=== PATIENT | female | born 1950 | race African-American/Black ===

== ENCOUNTER 2019-04-03 10:29 | Emergency (ER) | payer MEDICARE, OTHER ==
[~2019-04-03] VITALS: Ht 162.6 cm; Wt 81.6 kg
[~2019-04-03 10:29] MED LIST: AMLO5TAB10 PO; CALCIUM; LISI-338 PO; MULT1TAB52 PO
[2019-04-03 11:12] VITALS: BP 118/66
[2019-04-03] MEDS ORDERED: CYCLOBENZAPRINE 10 MG TABLET. PO ONE (11:30)
--- NOTE | 2019-04-03 11:44 | PHYS DOC ---
Past Medical History Past Medical History: Cancer, Hypertension Additional Past Medical Histor: LUNG CA Past Surgical History: Cancer Surgery, Tubal ligation Alcohol Use: None Drug Use: None Adult General Chief Complaint Chief Complaint: BACK PAIN OR INJURY [facility] HPI Patient is a 68 year old female who presents with complaining of low back pain. Patient complains of intermittent episodes of low back pain as a throbbing pain for the last 1 week that happened only with activity and movement as a moderate pain. Patient states the pain does not radiate and denies focal neuro deficit, nausea, and bowel incontinence. Patient states she fell asleep on a recliner last night and since then her pain getting force and rated her pain 8/10 with activity. She denies history of back pain and injury. Patient states she took a muscle relaxer last night without change of her pain. Review of Systems Review of Systems Constitutional: Denies fever or chills [] Eyes: Denies change in visual acuity, redness, or eye pain [] HENT: Denies nasal congestion or sore throat [] Respiratory: Denies cough or shortness of breath [] Cardiovascular: No additional information not addressed in HPI [] GI: Denies abdominal pain, nausea, vomiting, bloody stools or diarrhea [] : Denies dysuria or hematuria [] Musculoskeletal: Reports back pain Integument: Denies rash or skin lesions [] Neurologic: Denies headache, focal weakness or sensory changes [] Endocrine: Denies polyuria or polydipsia [] All other systems were reviewed and found to be within normal limits, except as documented in this note. Current Medications Current Medications Current Medications Medications (Trade) Dose Ordered Sig/Gustavo Start Time Stop Time Status Last Admin Dose Admin Acetaminophen/ Hydrocodone Bitart (Lortab 5/325) 1 tab 1X ONCE 04/03/19 11:45 04/03/19 11:36 DC Cyclobenzaprine HCl (Flexeril) 10 mg 1X ONCE 04/03/19 11:30 04/03/19 11:31 DC 04/03/19 12:01 10 MG Tramadol HCl (Ultram) 50 mg 1X ONCE 04/03/19 11:45 04/03/19 11:46 DC 04/03/19 12:01 50 MG Allergies Allergies Allergies Coded Allergies Type Severity Reaction Last Updated Verified codeine Allergy Intermediate 04/14/14 Yes latex Allergy Intermediate 04/14/14 Yes Physical Exam Physical Exam Constitutional: Well developed, well nourished, mild distress, non-toxic appearance. [] HENT: Normocephalic, atraumatic. Eyes: PERRLA, EOMI, conjunctiva normal, no discharge. [] Neck: Normal range of motion, no tenderness, supple, no stridor. [] Cardiovascular:Heart rate regular rhythm, no murmur [] Lungs & Thorax: Bilateral breath sounds clear to auscultation [] Abdomen: Bowel sounds normal, soft, no tenderness, no masses, no pulsatile masses. [] Skin: Warm, dry, no erythema, no rash. [] Back: No midline tenderness, painful range of motion , no CVA tenderness. [] Extremities: No tenderness, no cyanosis, no clubbing, ROM intact, no edema. [] Neurologic: Alert and oriented X 3, no focal deficits noted. [] Psychologic: Affect normal, judgement normal, mood normal. [] Current Patient Data Vital Signs Vital Signs Date Time Temp Pulse Resp B/P (MAP) Pulse Ox O2 Delivery O2 Flow Rate FiO2 04/03/19 11:12 98.6 76 20 118/66 (83) 99 Room Air 98.6 EKG EKG [] Radiology/Procedures Radiology/Procedures [][facility] [address] [place] [address] IMAGING REPORT Signed PATIENT: MAXIMINO DIANE ACCOUNT: [id number] : 1950 LOCATION: ER AGE: 68 SEX: F EXAM STATUS: REG ER ORD. PHYSICIAN: DECLAN DIA MD REASON: low back pain PROCEDURE: CT LUMBAR SPINE WO CONTRAST EXAM: Lumbar spine CT without contrast. HISTORY: Pain. TECHNIQUE: Computed tomographic images of the lumbar spine were obtained without contrast. Multiplanar reformatting was performed. *One or more of the following individualized dose reduction techniques were utilized for this examination: 1. Automated exposure control. 2. Adjustment of the mA and/or kV according to patient size. 3. Use of iterative reconstruction technique. COMPARISON: None. FINDINGS: There is mild lumbar scoliosis. There is grade 1 anterolisthesis of L4 and L5, measuring 4 mm. There is degenerative endplate remodeling predominantly at L5-S1. There are few tiny endplate Schmorl's nodes at this level. There is no fracture or suspicious osseous lesion. There is multilevel facet arthropathy. There is a 3.6 cm simple appearing cyst within the posterior upper mid zone of the left kidney. There is a heterogeneous solid-appearing mass within the lower pole the right kidney measuring 3.3 cm. At L1-L2, there is a disc bulge. There is no stenosis. At L2-L3, there is a disc bulge. There is minimal left facet arthropathy. There is no stenosis. At L3-L4, there is a disc bulge and endplate remodeling. There is minimal bilateral facet arthropathy. There is no stenosis. At L4-L5, there is a disc bulge and endplate osteophytosis. There is moderate bilateral facet arthropathy. There is grade 1 anterolisthesis. There is mild bilateral foraminal stenosis with abutment the exiting right L4 nerve root. At L5-S1, there is a disc bulge and endplate osteophytosis. There is mild right facet arthropathy. There is mild bilateral foraminal stenosis with abutment of the exiting right greater than left L5 nerve roots. IMPRESSION: 1. Multilevel degenerative change involving the lumbar spine, described in detail above. This is associated with mild bilateral foraminal stenosis and abutment the exiting right L4 nerve root at L4-5 and mild bilateral foraminal stenosis with abutment of the exiting right greater than left L5 nerve root at L5-S1. 2. Mild scoliosis and minimal grade 1 anterolisthesis of L4 on L5. 3. No acute finding. 4. 3.3 cm suspected mass along the lower pole of the right kidney. This is concerning for renal cell carcinoma. Correlate with a dedicated renal protocol CT or MRI, if not previously performed at an outside facility. There is also a simple appearing cyst within the left kidney measuring 3.6 cm. Electronically signed by: Raine Martines MD (04/03/2019 12:07 PM) [place] [id number] DICTATED and SIGNED BY: RAINE MARTINES MD DATE: 04/03/19 7395 Course & Med Decision Making Course & Med Decision Making Pertinent Imaging studies reviewed. (See chart for details) Evaluation of patient in ER showed 68-year-old female patient with lumbar pain that getting worse with movement. Patient did not have neurovascular deficit. CT of lumbar spine showed accidental left renal mass and patient was at was to follow-up with her primary care physician for evaluation of renal mass. discharge: I've spoken with the patient and/or caregivers. I've explained the patient's condition, diagnosis and treatment plan based on information available to me at this time. I've answered the patient's and/or caregivers questions and addressed any concerns. The patient and/or caregivers have a good understanding the patient's diagnosis, condition and treatment plan as can be expected at this point. Vital signs have been stabilized. The patient's condition is stable for discharge from the emergency department. The patient will pursue further outpatient evaluation with her primary care provider or other designated consulting physician as outlined in the discharge instructions. Patient and/or caregivers are agreeable to this plan of care and follow-up instructions have been explained in detail. The patient and/or caregivers have received these instructions in written format and expressed understanding of these discharge instructions. The patient and her caregivers are aware that if any significant change in condition or worsening of symptoms should prompt him to immediately return to this of the closest emergency depar tment. If an emergent department is not readily available I would encourage him to call 911. Dragon Disclaimer Dragon Disclaimer This electronic medical record was generated, in whole or in part, using a voice recognition dictation system. Departure Departure Impression: Primary Impression: Acute lumbosacral myofascial strain Additional Impressions: Renal mass, left Degenerative joint disease Disposition: HOME, SELF-CARE (at 1247) Condition: IMPROVED Referrals: JOHANNY JERNIGAN MD (PCP) Patient Instructions: Lumbosacral Strain Additional Instructions: Apply ice on your back Follow-up with your primary care physician in 3-5 days for evaluation of kidney mass Return to ER if not getting better Scripts Tramadol Hcl (ULTRAM) 50 Mg Tablet 50 MG PO Q6HRS PRN for PAIN, #14 TAB 0 Refills Prov: DECLAN DIA MD 04/03/19 Cyclobenzaprine Hcl (CYCLOBENZAPRINE HCL) 10 Mg Tablet 1 TAB PO TID, #21 TAB Prov: DECLAN DIA MD 04/03/19 Problem Qualifiers Primary Impression: Acute lumbosacral myofascial strain Encounter type: initial encounter Qualified Codes: S39.012A - Strain of muscle, fascia and tendon of lower back, initial encounter Additional Impressions: Degenerative joint disease Osteoarthritis location: spine Spinal region: unspecified Spinal osteoarthritis complication: unspecified spinal osteoarthritis Qualified Codes: M47.9 - Spondylosis, unspecified DECLAN DIA MD Apr 03, 2019 11:44
[2019-04-03] MEDS ORDERED: HYDROcodone/APAP 5/325MG 1 TAB TABLET PO ONE (11:45)
[2019-04-03] MEDS ORDERED: traMADol 50 MG TABLET PO ONE (11:45)
--- NOTE | 2019-04-03 12:10 | RAD ---
EXAM: Lumbar spine CT without contrast. HISTORY: Pain. TECHNIQUE: Computed tomographic images of the lumbar spine were obtained without contrast. Multiplanar reformatting was performed. *One or more of the following individualized dose reduction techniques were utilized for this examination: 1. Automated exposure control. 2. Adjustment of the mA and/or kV according to patient size. 3. Use of iterative reconstruction technique. COMPARISON: None. FINDINGS: There is mild lumbar scoliosis. There is grade 1 anterolisthesis of L4 and L5, measuring 4 mm. There is degenerative endplate remodeling predominantly at L5-S1. There are few tiny endplate Schmorl's nodes at this level. There is no fracture or suspicious osseous lesion. There is multilevel facet arthropathy. There is a 3.6 cm simple appearing cyst within the posterior upper mid zone of the left kidney. There is a heterogeneous solid-appearing mass within the lower pole the right kidney measuring 3.3 cm. At L1-L2, there is a disc bulge. There is no stenosis. At L2-L3, there is a disc bulge. There is minimal left facet arthropathy. There is no stenosis. At L3-L4, there is a disc bulge and endplate remodeling. There is minimal bilateral facet arthropathy. There is no stenosis. At L4-L5, there is a disc bulge and endplate osteophytosis. There is moderate bilateral facet arthropathy. There is grade 1 anterolisthesis. There is mild bilateral foraminal stenosis with abutment the exiting right L4 nerve root. At L5-S1, there is a disc bulge and endplate osteophytosis. There is mild right facet arthropathy. There is mild bilateral foraminal stenosis with abutment of the exiting right greater than left L5 nerve roots. IMPRESSION: 1. Multilevel degenerative change involving the lumbar spine, described in detail above. This is associated with mild bilateral foraminal stenosis and abutment the exiting right L4 nerve root at L4-5 and mild bilateral foraminal stenosis with abutment of the exiting right greater than left L5 nerve root at L5-S1. 2. Mild scoliosis and minimal grade 1 anterolisthesis of L4 on L5. 3. No acute finding. 4. 3.3 cm suspected mass along the lower pole of the right kidney. This is concerning for renal cell carcinoma. Correlate with a dedicated renal protocol CT or MRI, if not previously performed at an outside facility. There is also a simple appearing cyst within the left kidney measuring 3.6 cm. Electronically signed by: Raine Bhatti MD (04/03/2019 12:07 PM) [place] [id number]
[2019-04-03] MEDS ORDERED: TRAM-48 PO (12:51)
[2019-04-03] MEDS ORDERED: CYCL10TA2 PO (12:51)
== END 2019-04-03 13:07 | disposition home or self-care (01) ==
LOC: ER 10:29
DX: S39.012A Strain of muscle, fascia and tendon of lower back, initial encounter (principal); M47.817 Spondylosis without myelopathy or radiculopathy, lumbosacral region; N28.89 Other specified disorders of kidney and ureter; I10 Essential (primary) hypertension; Z98.890 Other specified postprocedural states; Z98.51 Tubal ligation status; Z88.5 Allergy status to narcotic agent; Z91.040 Latex allergy status; X50.1XXA Overexertion from prolonged static or awkward postures, initial encounter; Y93.89 Activity, other specified; Y92.89 Other specified places as the place of occurrence of the external cause; Y99.8 Other external cause status
CPT/HCPCS: 72131; 99284

== ENCOUNTER → 2019-04-17 | Outpatient (CLI) | payer OTHER ==
[2019-04-03 11:12] VITALS: BP 118/66
[~2019-04-17] MED LIST changes: +CYCL10TA2 PO; +GADOTERATE 7.5 MMOL/15ML VIAL. IVP ONE; +TRAM-48 PO
--- NOTE | 2019-04-18 08:06 | RAD ---
EXAM: MRI ABDOMEN WITH AND WITHOUT CONTRAST. HISTORY: Right renal mass. TECHNIQUE: MRI of the abdomen was performed before and after the intravenous administration of gadolinium contrast. COMPARISON: 04/03/2019. FINDINGS: Kidneys: A heterogeneous exophytic mass at the right renal lower pole measures 2.8 x 3.0 x 2.7 cm. It enhances weakly. Signal loss on gradient echo images is consistent with a component of prior hemorrhage. It is incompletely included on some series. No renal vein invasion, para-aortic lymphadenopathy, or extension beyond Gerota's fascia is identified. There are multiple benign-appearing cysts elsewhere in both kidneys. The largest in the left interpolar region posteriorly measures 3.4 x 3.4 cm. There are only tiny cysts on the right measuring up to 5 mm. Liver: There is no significant steatosis. A small arterially enhancing focus posteriorly in hepatic segment 7 as no correlate on other series and may represent a focus of subcapsular vascular shunting. It measures 8 mm. Another tiny focus in segment 7 on image 97 measures 4 mm and may represent vascular shunting or small hemangioma. There are no clearly suspicious hepatic lesions. Biliary tree: The gallbladder is unremarkable. The common duct is not dilated. There are no suspicious pancreatic parenchymal lesions. The pancreatic duct is not dilated. Other findings: The adrenal glands and spleen are unremarkable. IMPRESSION: 1. 3.0 cm weakly enhancing solid mass at the right renal lower pole. This is concerning for renal cell carcinoma. Ongoing management is recommended. 2. Subcentimeter enhancing foci in hepatic segment 7 have no clear correlates on other series and likely represent benign foci of vascular shunting. Electronically signed by: Tanner Fry MD (04/18/2019 8:04 AM) [facility]
== END | disposition home or self-care (01) ==
LOC: MRI 14:01
PROVIDERS: ATTEND Family Medicine
DX: N28.89 Other specified disorders of kidney and ureter (principal); N28.1 Cyst of kidney, acquired; I10 Essential (primary) hypertension
CPT/HCPCS: 74183; A9575

== ENCOUNTER → 2020-04-14 | Outpatient (CLI) | payer OTHER ==
[2019-04-29 11:41] VITALS: BP 144/84
[~2020-04-14] MED LIST changes: +AMLO-186 PO; -AMLO5TAB10 PO; +CALC-497 PO; -GADOTERATE 7.5 MMOL/15ML VIAL. IVP ONE; +MULT-445 PO; -MULT1TAB52 PO; +OMEG1CAP50 PO; +TELM1TAB26 PO
--- NOTE | 2020-04-14 15:15 | RAD ---
DATE: 04/14/2020 8:17 AM EXAM: MAMMO SONNY SCREENING BILATERAL HISTORY: Screening COMPARISON: 03/08/2016, 02/26/2015. Bilateral CC and MLO views of the breasts were performed. Bilateral breast tomosynthesis was performed in CC and MLO projections. This study was interpreted with the benefit of Computerized Aided Detection (CAD). FINDINGS: Breast Density: SCATTERED The breast parenchyma shows scattered fibroglandular densities. Breast parenchyma level B No suspicious masses, microcalcifications or architectural distortion is present to suggest malignancy in either breast. The visualized axillae are unremarkable. IMPRESSION: No mammographic evidence of malignancy. BI-RADS CATEGORY: 1 NEGATIVE RECOMMENDED FOLLOW-UP: 12M 12 MONTH FOLLOW-UP Annual screening mammography is recommended, unless clinically indicated sooner based on symptoms or change in physical exam. PQRS compliance statement: Patient information was entered into a reminder system with a target due date for the next mammogram. Mammography is a sensitive method for finding small breast cancers, but it does not detect them all and is not a substitute for careful clinical examination. A negative mammogram does not negate a clinically suspicious finding and should not result in delay in biopsying a clinically suspicious abnormality. "Our facility is accredited by the [employer] Mammography Program."
== END ==
LOC: MAMMO 08:06
PROVIDERS: ATTEND Family Medicine
DX: Z12.31 Encounter for screening mammogram for malignant neoplasm of breast (principal)
CPT/HCPCS: 77063; 77067

== ENCOUNTER → 2021-04-15 | Outpatient (CLI) | payer OTHER ==
[2019-04-29 11:41] VITALS: BP 144/84
[~2021-04-15] MED LIST changes: +CYCL10TA19 PO; -CYCL10TA2 PO; -LISI-338 PO; +LISI5TAB15 PO
--- NOTE | 2021-04-15 12:24 | RAD ---
BILATERAL DIGITAL SCREENING 2-D AND 3-D MAMMOGRAM INDICATION: Routine screening. COMPARISON: April 03, 2019, April 14, 2020 April 02, 2018 and March 30, 2017 and February. Interpretation was made using CAD. FINDINGS: Breast Density: There are scattered areas of fibroglandular density. RIGHT BREAST: No suspicious masses, calcifications or areas of architectural distortion are seen. LEFT BREAST: There is a stable oval circumscribed mass in the lower breast. No suspicious masses, trip cifications or areas of architectural distortion are seen. IMPRESSION: 1. No imaging evidence of malignancy. ASSESSMENT: BI-RADS 2. Benign findings RECOMMENDATION: Routine annual screening mammogram. The facility will notify the patient of the results via mail. Patient information will be entered int o the mammography reminder system with a target recall date for the next mammogram. A reminder letter will be generated by the facility. Electronically signed by: Africa Kwong MD (04/15/2021 12:22 PM) [id number]
== END ==
LOC: MAMMO 07:51
PROVIDERS: ATTEND Family Medicine
DX: Z12.31 Encounter for screening mammogram for malignant neoplasm of breast (principal)
CPT/HCPCS: 77063; 77067